=== PATIENT | female | born 1970 | race Two or more races ===

== ENCOUNTER 2016-09-04 22:35 | Emergency (ER) | payer MEDICAID ==
[~2016-09-04] VITALS: Ht 160 cm; Wt 78.0 kg
[~2016-09-04 22:35] MED LIST: ADVAIR 100-501 EACH INH; ALBUTEROL SULF8.5 GM INH; HYDROCHLOROTHIA25 MG ORAL; IBUPROFEN600 MG ORAL; PREDNISONE20 MG ORAL; PREDNISONE50 MG ORAL; PROAIR HFA8.5 GM INH; PROVENTIL HFA6.7 G1 IH; ROBITUSSIN DM5 ML PO; ZITHROMAX250 MG ORAL; ZOFRAN ODT4 MG ORAL
--- NOTE | 2016-09-04 23:07 | Emergency Room Report ---
History of Present Illness General Chief Complaint: Upper Respiratory Illness Source: Patient Present Illness HPI This is a 46-year-old female with history of asthma. She has frequent exacerbation. She presents with wheezing and shortness of breath started today. Her inhaler not helping. She try one Qvar also not helping. She has a cold for the last 2 days. Does any chest pain. Has tightness. Has wheezing. Similar symptom in the past. No fever or chills. Allergies: Coded Allergies: No Known Allergies (Unverified , 06/09/13) Patient History Past Medical History: see triage record, old chart reviewed, asthma Past Surgical History: other Pertinent Family History: none Social History: Denies: smoking Now: No Immunizations: other Reviewed Nursing Documentation: PMH: Agreed, PSxH: Agreed Nursing Documentation-PMH Hx Hypertension: Yes Hx Asthma: Yes Review of Systems Eye: Denies: blurred vision, eye pain ENT: Denies: ear pain, nose congestion, throat swelling Respiratory: Reports: cough, shortness of breath, wheezing Cardiovascular: Denies: chest pain, palpitations Gastrointestinal: Denies: abdominal pain, diarrhea, nausea, vomiting Musculoskeletal: Denies: back pain, joint pain Skin: Denies: rash Neurological: Denies: headache, numbness Endocrine: Denies: increased thirst, increased urine Hematologic/Lymphatic: Denies: easy bruising All Other Systems: negative except mentioned in HPI Physical Exam Vital Signs Date Time Temp Pulse Resp B/P Pulse Ox O2 Delivery O2 Flow Rate FiO2 09/04/16 22:40 98.4 77 18 149/83 99 Room Air vitals showed hypertension Sp02 EP Interpretation: reviewed, normal General Appearance: well appearing, alert, mild distress Head: normocephalic, atraumatic Eyes: bilateral eye EOMI, bilateral eye PERRL ENT: hearing grossly normal, normal pharynx Neck: full range of motion, supple, no meningismus Respiratory: chest non-tender, decreased breath sounds, accessory muscle use, wheezing Cardiovascular #1: regular rate, rhythm, no murmur Gastrointestinal: normal bowel sounds, non tender, no mass, no organomegaly, no bruit, non-distended Musculoskeletal: back normal, gait/station normal, normal range of motion Psychiatric: mood/affect normal Skin: warm/dry Medical Decision Making Diagnostic Impression: Primary Impression: Upper respiratory infection Qualified Codes: J06.9 - Acute upper respiratory infection, unspecified; B97.89 - Other viral agents as the cause of diseases classified elsewhere Additional Impression: ACUTE ASTHMA EXACERBATION ER Course Patient presents with asthma exacerbation secondary to viral illness. After several treatments, she felt better now. No longer wheezing. We'll discharge home. No evidence of pneumonia, CHF, PE, ACS, dissection to name a few. Last Vital Signs Date Time Temp Pulse Resp B/P Pulse Ox O2 Delivery O2 Flow Rate FiO2 09/04/16 22:40 98.4 77 18 149/83 99 Room Air Status: improved Disposition: HOME, SELF-CARE Condition: Stable Scripts Prednisone* (PREDNISONE*) 20 Mg Tablet 60 MG ORAL DAILY, #12 TAB Prov: TATIANA BLAIR M.D. 09/05/16 Albuterol Sulfate* (ALBUTEROL SULFATE MDI*) 8.5 Gm Hfa.aer.ad 2 PUFF INH Q4H Y for cough/wheezing, #1 EA 0 Refills Prov: TATIANA BLAIR M.D. 09/05/16 Additional Instructions: Followup your DrGiuliano in 2-3 days and not better. Return if symptom worsen. TATIANA BLAIR M.D. Sep 04, 2016 23:07
[2016-09-04] MEDS ORDERED: PredniSONE 20mg tab ORAL ONE (23:15)
[2016-09-04] MEDS ORDERED: Ipratropium 0.02% Inh Soln 2.5ml UD HHN ONE (23:15)
[2016-09-04] MEDS ORDERED: Albuterol ud Inhalation HHN ONE (23:15)
[2016-09-04 23:30] VITALS: BP 143/87
[2016-09-05] MEDS ORDERED: Albuterol ud Inhalation HHN ONE (00:30)
[2016-09-05 01:30] VITALS: BP 151/87
[2016-09-05] MEDS ORDERED: PREDNISONE20 MG ORAL (01:49)
[2016-09-05] MEDS ORDERED: ALBUTEROL SULF8.5 GM INH (01:49)
[2016-09-05 01:54] VITALS: BP 151/87
== END 2016-09-05 01:54 | disposition home or self-care (01) ==
LOC: EMR 23:05
DX: J45.901 Unspecified asthma with (acute) exacerbation (principal); J06.9 Acute upper respiratory infection, unspecified; B97.89 Other viral agents as the cause of diseases classified elsewhere; I10 Essential (primary) hypertension
CPT/HCPCS: 94640; 94664; 99284

== ENCOUNTER 2017-04-29 07:49 | Emergency (ER) | payer SELFPAY ==
[~2017-04-29] VITALS: Ht 160 cm; Wt 70.3 kg
[2017-04-29 07:56] VITALS: BP 155/76
[2017-04-29] MEDS ORDERED: IBUPROFEN600 MG ORAL (08:12)
--- NOTE | 2017-04-29 08:15 | Emergency Room Report ---
History of Present Illness General Chief Complaint: Lower Extremity Injury Source: Patient Present Illness HPI Patient present with complaints of left calf pain Pain started last week on Patient was running to catch a bus when she felt a pain And as it has persisted she was concerning came to the ER Denies any swelling she felt that she has some discomfort to the ankle as well yesterday she felt some discomfort to the right ankle Denies any fall or other trauma denies any fevers or chills denies any chest pain shortness of breath denies any recent travel Allergies: Coded Allergies: No Known Allergies (Unverified , 06/09/13) Patient History Past Medical History: see triage record Pertinent Family History: none Last Menstrual Period: now Now: No Reviewed Nursing Documentation: PMH: Agreed, PSxH: Agreed Nursing Documentation-PMH Past Medical History: No History, Except For Hx Hypertension: Yes Hx Asthma: Yes Review of Systems All Other Systems: negative except mentioned in HPI Physical Exam Vital Signs Date Time Temp Pulse Resp B/P (MAP) Pulse Ox O2 Delivery O2 Flow Rate FiO2 04/29/17 07:56 99.0 65 18 155/76 98 Room Air Sp02 EP Interpretation: reviewed, normal General Appearance: well appearing, no apparent distress Head: normocephalic, atraumatic Eyes: bilateral eye PERRL, bilateral eye EOMI ENT: normal pharynx Neck: full range of motion, supple Cardiovascular #1: regular rate, rhythm Musculoskeletal: other - Discomfort with extending the foot, and extension stretching of the calf, no obvious swelling, no obvious hematomas or bruising, the cath itself feels soft Neurologic: alert, oriented x3, responsive, gallery assistant III-XII nml as tested Skin: normal color, no rash Lymphatic: no adenopathy Medical Decision Making Diagnostic Impression: Primary Impression: muscle strain ER Course Multiple differentials including but not limited to, partial muscle tear, blood clots, compartment syndrome considered Patient however has findings in line with a likely muscle strain With the lack of any hematomas or bruising less likely muscle tear No clinical symptoms are as fractures for blood clot and the patient is stable for close outpatient follow Last Vital Signs Date Time Temp Pulse Resp B/P (MAP) Pulse Ox O2 Delivery O2 Flow Rate FiO2 04/29/17 07:56 99.0 65 18 155/76 98 Room Air Status: unchanged Disposition: HOME, SELF-CARE Condition: Stable Scripts Ibuprofen* (MOTRIN*) 600 Mg Tablet 600 MG ORAL Q8H Y for For Pain, #20 TAB 0 Refills Prov: DORA LEON D.O. 04/29/17 Referrals: NON PHYSICIAN (PCP) Patient Instructions: Muscle Strain, [id number] Additional Instructions: Patient is provided with the discharge instructions notified to follow up with primary doctor in the next 2-3 days otherwise return to the er with any worsening symptoms. Please note that this report is being documented using [employer] technology. This can lead to erroneous entry secondary to incorrect interpretation by the dictating instrument. DORA LEON D.O. Apr 29, 2017 08:15
[2017-04-29 08:29] VITALS: BP 155/76
== END 2017-04-29 08:29 | disposition home or self-care (01) ==
LOC: EMR 08:10
DX: S86.112A Strain of other muscle(s) and tendon(s) of posterior muscle group at lower leg level, left leg, initial encounter (principal); X58.XXXA Exposure to other specified factors, initial encounter; Y92.89 Other specified places as the place of occurrence of the external cause; I10 Essential (primary) hypertension; J45.909 Unspecified asthma, uncomplicated
CPT/HCPCS: 99283

== ENCOUNTER 2017-11-18 21:23 | Emergency (ER) | payer SELFPAY ==
[~2017-11-18] VITALS: Ht 153 cm; Wt 77.6 kg
[2017-11-18] MEDS ORDERED: BENADRYL A12.5 MG/5 ORAL (21:33)
[2017-11-18] MEDS ORDERED: SINGULAIR10 MG ORAL (21:33)
[2017-11-18] MEDS ORDERED: LORazepam Inj 2mg/ml 1ml IV ONE (21:45)
--- NOTE | 2017-11-18 21:48 | Emergency Room Report ---
History of Present Illness General Chief Complaint: Dizziness Source: Patient Present Illness HPI Is a 47-year-old female with no significant past medical history. Presents with chief complaint of dizziness. Onset yesterday. Worse when she is laying down turning her to certain way. Said the room is spinning. Intermittently. Has nausea but no vomiting. No recent illnesses. No diarrhea. No chest pain. No cough or congestion. Allergies: Coded Allergies: No Known Allergies (Unverified , 06/09/13) Patient History Past Medical History: see triage record, old chart reviewed, HTN Past Surgical History: other Pertinent Family History: none Social History: Denies: smoking Now: No Immunizations: other Reviewed Nursing Documentation: PMH: Agreed; PSxH: Agreed Nursing Documentation-PMH Past Medical History: No History, Except For Hx Hypertension: Yes Hx Asthma: Yes Review of Systems Eye: Denies: eye pain, blurred vision ENT: Denies: ear pain, nose congestion, throat swelling Respiratory: Denies: cough, shortness of breath Cardiovascular: Denies: chest pain, palpitations Gastrointestinal: Denies: abdominal pain, diarrhea, nausea, vomiting Musculoskeletal: Denies: back pain, joint pain Skin: Denies: rash Neurological: Reports: dizziness; Denies: headache, numbness Endocrine: Denies: increased thirst, increased urine Hematologic/Lymphatic: Denies: easy bruising All Other Systems: negative except mentioned in HPI Physical Exam Vital Signs Date Time Temp Pulse Resp B/P (MAP) Pulse Ox O2 Delivery O2 Flow Rate FiO2 18 21:27 98.3 62 18 156/87 96 Room Air 98.2 vitals with high blood pressure Sp02 EP Interpretation: reviewed, normal General Appearance: well appearing, no apparent distress, alert Head: normocephalic, atraumatic Eyes: left eye other - Reproducible symptom when her head is turned to the left.; bilateral eye PERRL, bilateral eye EOMI ENT: hearing grossly normal, normal pharynx Neck: full range of motion, supple, no meningismus Respiratory: chest non-tender, lungs clear, normal breath sounds Cardiovascular #1: regular rate, rhythm, no murmur Gastrointestinal: normal bowel sounds, non tender, no mass, no organomegaly, no bruit, non-distended Musculoskeletal: back normal, gait/station normal, normal range of motion Psychiatric: mood/affect normal Skin: warm/dry Medical Decision Making Diagnostic Impression: Primary Impression: Vertigo ER Course Patient presents with symptoms of vertigo. No evidence of VBI, TIA, CVA or neoplastic process. CT scan negative. Labs unremarkable. Patient felt better now. We'll discharge home. Lab Results Impression labs normal CT/MRI/US Diagnostic Results CT/MRI/US Diagnostic Results : Imaging Test Ordered: CT head Impression negative per radiologist Last Vital Signs Date Time Temp Pulse Resp B/P (MAP) Pulse Ox O2 Delivery O2 Flow Rate FiO2 11/18/17 21:27 98.3 62 18 156/87 96 Room Air 98.2 Status: improved Disposition: HOME, SELF-CARE Condition: Stable Scripts Meclizine Hcl* (MECLIZINE*) 25 Mg Tablet 25 MG ORAL THREE TIMES A DAY, #20 TAB Prov: TATIANA BLAIR M.D. 11/18/17 Patient Instructions: Vertigo Additional Instructions: Follow-up with your doctor in 7 days. Return if symptom worsen. TATIANA BLAIR M.D. November 18, 2017 21:48
[2017-11-18 22:00] VITALS: BP 145/78
[2017-11-18 22:08] LABS: APPEARANCE,URINE CLEAR; BILIRUBIN, URINE NEGATIVE (NEGATIVE); COLOR,URINE PALE YELLOW; GLUCOSE, URINE (UA) NEGATIVE (NEGATIVE); KETONES,URINE NEGATIVE (NEGATIVE); LEUKOCYTE ESTERASE ,URINE NEGATIVE (NEGATIVE); NITRITE,URINE NEGATIVE (NEGATIVE); PH,URINE 6 (4.5-8.0); PROTEIN,URINE NEGATIVE (NEGATIVE); UROBILINOGEN,URINE NORMAL MG/DL (0.0-1.0)
[2017-11-18 22:08] LABS: BASOPHILS % (AUTO) 1.2 % (0.0-2.0); HEMATOCRIT 42.9 % (37.0-47.0); HEMOGLOBIN 14.5 G/DL (12.0-16.0); LYMPHOCYTES % (AUTO) 26.1 % (20.0-45.0); MEAN CORPUSCULAR VOLUME 87 FL (80-99); MONOCYTES % (AUTO) 9.4 % (1.0-10.0); NEUTROPHILS % (AUTO) 56.3 % (45.0-75.0); PLATELET COUNT 307 K/UL (150-450); RED BLOOD COUNT 4.94 M/UL (4.20-5.40); RED CELL DISTRIBUTION WIDTH 11.9 % (11.6-14.8); WHITE BLOOD COUNT 7.1 K/UL (4.8-10.8)
[2017-11-18 22:17] LABS: ANION GAP 9 mmol/L (5-15); BLOOD UREA NITROGEN 19 mg/dL (7-18); CALCIUM 9.1 MG/DL (8.5-10.1); CARBON DIOXIDE 25 MMOL/L (21-32); CHLORIDE 103 MMOL/L (98-107); CREATININE 0.8 MG/DL (0.55-1.30); POTASSIUM 3.6 MMOL/L (3.5-5.1); SODIUM 137 MMOL/L (136-145)
[2017-11-18] MEDS ORDERED: MECLIZINE HCL25 MG ORAL (22:42)
[2017-11-18 23:10] VITALS: BP 140/68
[2017-11-18 23:12] VITALS: BP 140/68
--- NOTE | 2017-11-19 08:30 | Diagnostic Imaging Report ---
Indication: Dizziness Technique: Contiguous 5 mm thick transaxial imaging of the head obtained in a Siemens Sensation [address] scanner. Soft tissue and bone windows generated. Automatic Exposure Control was utilized. Total Dose length Product (DLP): 1418.[address] Dose Index Volume (CTDIvol): 70.38 mGy Comparison: none Findings: The size and configuration of the cortical sulci, basal cisterns, and ventricles are within normal limits for age. There is no mass effect, midline shift, or edema identified. There is no evidence of acute hemorrhage or abnormal intra-axial or extra-axial fluid collections. The bones and soft tissues are unremarkable. Impression: No mass effect, edema or acute bleed. [facility] has communicated the preliminary results to the Emergency Department. Their findings are largely concordant with this report. The CT scanner at [facility] is accredited by the [employer] and the scans are performed using dose optimization techniques as appropriate to a performed exam including Automatic Exposure control.
== END 2017-11-18 23:10 | disposition home or self-care (01) ==
LOC: EMR 21:45
DX: R42 Dizziness and giddiness (principal); J45.909 Unspecified asthma, uncomplicated; I10 Essential (primary) hypertension
CPT/HCPCS: 36415; 70450; 80048; 81001; 85025; 96374; 99284

== ENCOUNTER 2018-08-26 10:13 | Emergency (ER) | payer MEDICAID ==
[~2018-08-26] VITALS: Ht 142.2 cm; Wt 80.7 kg
[~2018-08-26 10:13] MED LIST changes: +BENADRYL A12.5 MG/5 ORAL; +MECLIZINE HCL25 MG ORAL; +SINGULAIR10 MG ORAL
[2018-08-26 10:28] VITALS: BP 144/84
--- NOTE | 2018-08-26 10:38 | NUR ---
ED Nurse Note: A/OX4. AMBULATED IN TO ER FROM HOME DUE TO FLU-LIKE SYMPTOMS- SORE THROAT AND NASAL CONGESTION AND COUGHING X 1 WEEK. PER PT, SYMPTOMS GOT WORSE LAST NIGHT. TOOK ADVILL BUT DID NOT HELP MUCH.
[2018-08-26] MEDS ORDERED: Albuterol/Ipratropium 3ml neb HHN ONE (10:45)
--- NOTE | 2018-08-26 10:46 | NUR ---
ED Nurse Note: NOTIFIED RT REGARDING BREATHING TREATMENT ORDER
[2018-08-26] MEDS ORDERED: TAMIFLU75 MG ORAL (11:18)
[2018-08-26 13:32] VITALS: BP 138/79
--- NOTE | 2018-08-26 13:32 | NUR ---
ED Nurse Note: A/Ox4. Pt is cleared by AMBER Contreras. DC instruction and prescriptions given, pt verbalized understanding. IV/ID wristband removed. All belongings taken by pt. Denies pain at this time. Pt ambulated out of ER with steady gait.
--- NOTE | 2018-08-26 21:58 | Emergency Room Report ---
History of Present Illness General Chief Complaint: Flu Like Symptoms Source: Patient Present Illness HPI Patient is a 48-year-old female presented after increased cough and congestion. Patient reports having increased nonproductive cough associated with body aches. She had not been vomiting. She reports having some sore throat. Patient denies any neck stiffness. She denies any exertional symptoms. She denies any chest pain. She reports having some generalized body aches. Allergies: Coded Allergies: No Known Allergies (Unverified , 06/09/13) Patient History Past Medical History: see triage record Last Menstrual Period: 1-24 Now: No Reviewed Nursing Documentation: PMH: Agreed; PSxH: Agreed Nursing Documentation-PMH Hx Hypertension: Yes Hx Asthma: Yes Review of Systems All Other Systems: negative except mentioned in HPI Physical Exam Vital Signs Date Time Temp Pulse Resp B/P (MAP) Pulse Ox O2 Delivery O2 Flow Rate FiO2 08/26/18 10:24 99.0 69 18 144/84 97 Room Air 08/26/18 10:51 21 Sp02 EP Interpretation: reviewed, normal General Appearance: normal inspection, well appearing, no apparent distress, alert, GCS 15 Head: atraumatic ENT: normal ENT inspection, hearing grossly normal, normal voice Neck: normal inspection, full range of motion, supple, no bony tend Respiratory: normal inspection, lungs clear, normal breath sounds, no respiratory distress, no retraction, no wheezing Cardiovascular #1: regular rate, rhythm, no edema Gastrointestinal: normal inspection, normal bowel sounds, non tender, soft, no guarding, no hernia Genitourinary: no CVA tenderness Musculoskeletal: normal inspection, back normal, normal range of motion Neurologic: normal inspection, alert, oriented x3, responsive, z os mainframe systems programmer III-XII nml as tested, speech normal Psychiatric: normal inspection, judgement/insight normal, mood/affect normal Skin: normal inspection, normal color, no rash Medical Decision Making Diagnostic Impression: Primary Impression: Influenza-like illness ER Course . Patient presented for cough and fever. Differential diagnosis includes is not limited to pneumonia, bronchitis, influenza, pulmonary embolism among others. Patient has a benign exam and does not appear to require any further imaging or laboratory testing at this time patient appears to have an influenza- like illness. Patient will be empirically treated with Tamiflu.Patient was tested for influenza and this was negative however given the prevalence of influenza at this time this is more likely a false negative. Patient was advised to recheck with her primary care physician and drink plenty of fluids. She advised to return if any worsening of condition. Labs Test 08/26/18 10:45 Urine HCG, Qualitative Negative (NEGATIVE) Last Vital Signs Date Time Temp Pulse Resp B/P (MAP) Pulse Ox O2 Delivery O2 Flow Rate FiO2 08/26/18 13:32 98.8 70 16 138/79 98 Room Air 08/26/18 11:07 21 Status: improved Disposition: HOME, SELF-CARE Condition: Stable Scripts Oseltamivir Phosphate (Tamiflu) 75 Mg Capsule 75 MG ORAL TWICE A DAY, #10 CAP Prov: Bhavin Lyles MD 08/26/18 Patient Instructions: Viral Respiratory Infection Bhavin Lyles MD Aug 26, 2018 21:58
== END 2018-08-26 13:31 | disposition home or self-care (01) ==
LOC: EMR 10:43
DX: J11.1 Influenza due to unidentified influenza virus with other respiratory manifestations (principal); I10 Essential (primary) hypertension; J45.901 Unspecified asthma with (acute) exacerbation
CPT/HCPCS: 81025; 86710; 94640; 99284; J7620

== ENCOUNTER 2018-10-31 22:39 | Emergency (ER) | payer MEDICAID ==
[~2018-10-31] VITALS: Ht 152.4 cm; Wt 80.7 kg
[~2018-10-31 22:39] MED LIST changes: +TAMIFLU75 MG ORAL
[2018-10-31 23:00] VITALS: BP 156/82
--- NOTE | 2018-10-31 23:00 | NUR ---
ED Nurse Note: Patient walked into ED c/o lower back pain accompanied by cough for 1 day. patient rates her pain a 9/10 scale. patient is alert and oriented x4, ambulatory with a steady gait, VSS
[2018-10-31] MEDS: HYDROcodone/Acetamin 5/325 tab ORAL ONE (23:05)
[2018-11-01] MEDS ORDERED: PROMETHAZINE-C118 M1 ORAL (00:03)
[2018-11-01] MEDS ORDERED: IBUPROFEN600 MG ORAL (00:03)
--- NOTE | 2018-11-01 00:03 | Emergency Room Report ---
History of Present Illness General Chief Complaint: Upper Respiratory Illness Source: Patient Present Illness HPI Is a 48-year-old female with history of asthma. She presents with chief complaint of cough and back pain. She been coughing for last couple days. Nonproductive nature. Better with her inhaler. Now her back is hurting. Worse with movement. Worse with inspiration. Pain is sharp and localized to the right upper back. 7 out of 10. No radiation. no Calf tenderness. Allergies: Coded Allergies: No Known Allergies (Unverified , 06/09/13) Patient History Past Medical History: see triage record, old chart reviewed, asthma Past Surgical History: other Pertinent Family History: none Social History: Denies: smoking Last Menstrual Period: 10/16/18 Now: No Immunizations: other Reviewed Nursing Documentation: PMH: Agreed; PSxH: Agreed Nursing Documentation-PMH Past Medical History: No History, Except For Hx Hypertension: Yes Hx Asthma: Yes Review of Systems Eye: Denies: eye pain, blurred vision ENT: Denies: ear pain, nose congestion, throat swelling Respiratory: Denies: cough, shortness of breath Cardiovascular: Denies: chest pain, palpitations Gastrointestinal: Denies: abdominal pain, diarrhea, nausea, vomiting Musculoskeletal: Reports: back pain; Denies: joint pain Skin: Denies: rash Neurological: Denies: headache, numbness Endocrine: Denies: increased thirst, increased urine Hematologic/Lymphatic: Denies: easy bruising All Other Systems: negative except mentioned in HPI Physical Exam Vital Signs Date Time Temp Pulse Resp B/P (MAP) Pulse Ox O2 Delivery O2 Flow Rate FiO2 10/31/18 22:49 99.1 71 14 156/82 9 Room Air Sp02 EP Interpretation: reviewed, normal General Appearance: well appearing, no apparent distress, alert Head: normocephalic, atraumatic Eyes: bilateral eye PERRL, bilateral eye EOMI ENT: hearing grossly normal, normal pharynx Neck: full range of motion, supple, no meningismus Respiratory: lungs clear, normal breath sounds Cardiovascular #1: regular rate, rhythm, no murmur Gastrointestinal: normal bowel sounds, non tender, no mass, no organomegaly, no bruit, non-distended Musculoskeletal: back normal, gait/station normal, normal range of motion, other - Tenderness to palpation of the right thoracic area Psychiatric: mood/affect normal Skin: warm/dry Medical Decision Making Diagnostic Impression: Primary Impression: Strain of thoracic back region Additional Impression: Asthma Qualified Codes: J45.20 - Mild intermittent asthma, uncomplicated ER Course She presents with a strain of her back muscles secondary to coughing. No pneumonia, PE, dissection, ACS to name a few. We'll discharge home. Chest X-Ray Diagnostic Results Chest X-Ray Diagnostic Results : Chest X-Ray Ordered: Yes # of Views/Limited/Complete: 1 View Indication: Chest Pain EP Interpretation: Yes Interpretation: no consolidation, no effusion, no pneumothorax, no acute cardiopulmonary disease Impression: No acute disease Electronically Signed by: Mello Ring MD Last Vital Signs Date Time Temp Pulse Resp B/P (MAP) Pulse Ox O2 Delivery O2 Flow Rate FiO2 10/31/18 23:00 71 14 Room Air 10/31/18 23:00 99.1 156/82 99 Status: improved Disposition: HOME, SELF-CARE Condition: Stable Scripts Codeine/Promethazine Hcl* (PROMETHAZINE-CODEINE SYRUP*) 118 Ml Syrup 5 ML ORAL Q6H PRN for For Cough, #118 ML 0 Refills Prov: Mello Ring MD 11/01/18 Ibuprofen* (MOTRIN*) 600 Mg Tablet 600 MG ORAL THREE TIMES A DAY, #30 TAB 0 Refills Prov: Mello Ring MD 11/01/18 Additional Instructions: Follow-up with your doctor in 7 days. Return if symptom worsen. Mello Ring MD Nov 01, 2018 00:03
[2018-11-01 00:05] VITALS: BP 152/76
--- NOTE | 2018-11-01 00:05 | NUR ---
ER DISCHARGE NOTE: Patient is cleared to be discharged per ERMD, pt is aox4, on room air, with stable vital signs. pt was given dc and prescription instructions, pt was able to verbalize understanding, pt id band removed without complications. pt is able to ambulate with steady gait. pt took all belongings.
--- NOTE | 2018-11-01 13:16 | Diagnostic Imaging Report ---
. Indication: Shortness of breath Technique: 10/11/2014 Comparison: None Findings: Heart size and mediastinal contours are within normal limits for AP technique and stable compared to the prior exam. Atherosclerotic calcifications again noted in the aorta. There is no focal consolidation, pneumothorax or pleural effusion. Osseous structures demonstrate no acute abnormality. Surgical clips again noted in the right axilla. Impression: No radiographic evidence of acute cardiopulmonary disease.
== END 2018-11-01 00:05 | disposition home or self-care (01) ==
LOC: EMR 23:04
DX: S29.012A Strain of muscle and tendon of back wall of thorax, initial encounter (principal); X58.XXXA Exposure to other specified factors, initial encounter; Y92.9 Unspecified place or not applicable; I10 Essential (primary) hypertension; J45.909 Unspecified asthma, uncomplicated
CPT/HCPCS: 71045; 99283

== ENCOUNTER 2018-12-05 17:41 | Emergency (ER) | payer SELFPAY ==
[~2018-12-05] VITALS: Ht 157.5 cm; Wt 79.8 kg
[~2018-12-05 17:41] MED LIST changes: +PROMETHAZINE-C118 M1 ORAL
[2018-12-05 17:47] VITALS: BP 195/93
[2018-12-05 18:48] VITALS: BP 150/85
--- NOTE | 2018-12-05 18:59 | Emergency Room Report ---
History of Present Illness General Chief Complaint: Headache Source: Patient Present Illness HPI 48-year-old female with history of hypertension currently uncontrolled as she forgets to take her blood pressure medication here complaining of headache and forehead and bilateral maxilla as well as pressure in both ears x1 day. Patient also complains of minimal vertigo however denies syncope, and is able to walk without falling. Denies nausea, vomiting, abdominal pain, rhinorrhea, sore throat, and cough. She also has history of asthma and is currently using her inhaler as needed. Denies chest pain, S OB, palpitation. She reports that she often forgets to take her blood pressure medication as she is working a lot. Denies blurred vision. She is rating her headache 5 out of 10 without radiation and has taken ibuprofen for pain with minimal relief. Denies tingling and numbness Allergies: Coded Allergies: No Known Allergies (Unverified , 06/09/13) Patient History Past Medical History: see triage record Past Surgical History: unable to obtain Pertinent Family History: none Last Menstrual Period: 11/09/18 Now: No : 2 Para: 2 Immunizations: UTD Reviewed Nursing Documentation: PMH: Agreed; PSxH: Agreed Nursing Documentation-PMH Past Medical History: No History, Except For Hx Hypertension: Yes Hx Asthma: Yes Review of Systems All Other Systems: negative except mentioned in HPI Physical Exam Vital Signs Date Time Temp Pulse Resp B/P (MAP) Pulse Ox O2 Delivery O2 Flow Rate FiO2 12/05/18 17:47 98.4 70 20 195/93 (127) 96 Room Air Sp02 EP Interpretation: reviewed, normal General Appearance: normal inspection, well appearing, no apparent distress, alert Head: normocephalic, atraumatic Eyes: bilateral eye normal inspection, bilateral eye PERRL, bilateral eye photophobia, bilateral eye other - No nystagmus noted ENT: hearing grossly normal, normal pharynx, no angioedema, TMs + canals normal , other - Minor tenderness on bilateral maxillary sinuses Neck: normal inspection, full range of motion, supple Respiratory: normal inspection, chest non-tender, lungs clear, no wheezing Cardiovascular #1: normal inspection, normal peripheral pulses, regular rate, rhythm, no murmur Gastrointestinal: normal inspection, soft Rectal: deferred Genitourinary: no CVA tenderness Musculoskeletal: normal inspection, back normal, digits/nails normal Neurologic: normal inspection, alert, oriented x3, responsive, building coordinator III-XII nml as tested, motor strength/tone normal, sensory intact Psychiatric: normal inspection, judgement/insight normal, memory normal, mood/ affect normal Skin: normal inspection, normal color, no rash, warm/dry Lymphatic: normal inspection, no adenopathy Medical Decision Making PA Attestation All my diagnosis and treatment plans were reviewed ad discussed with my supervising physician Dr. Agee Diagnostic Impression: Primary Impression: Allergic rhinitis Additional Impressions: Vertigo Essential (primary) hypertension ER Course 48-year-old female with history of hypertension currently uncontrolled as she forgets to take her blood pressure medication here complaining of headache and forehead and bilateral maxilla as well as pressure in both ears x1 day. Patient also complains of minimal vertigo however denies syncope, and is able to walk without falling. Denies nausea, vomiting, abdominal pain, rhinorrhea, sore throat, and cough. She also has history of asthma and is currently using her inhaler as needed. Denies chest pain, S OB, palpitation. She reports that she often forgets to take her blood pressure medication as she is working a lot. Denies blurred vision. She is rating her headache 5 out of 10 without radiation and has taken ibuprofen for pain with minimal relief. Denies tingling and numbness Ddx considered but are not limited to: sinusitis, HTN urgency, allergic rhintitis, vertigo Vital signs: are WNL, pt. is afebrile H&PE are most consistent with: allergic rhintitis, vertigo , HTN ORDERS: meclizine, claritin ED INTERVENTIONS: HCTZ 25mg DISCHARGE: At this time pt. is stable for d/c to home. Will provide printed patient care instructions, and any necessary prescriptions. Care plan and follow up instructions have been discussed with the patient prior to discharge. Patient to follow-up with a primary care provider for better management of blood pressure I administer 25 mg of hydrochlorothiazide in the emergency room today as patient had not taken her blood pressure medication with the same dosage for a few days. The blood pressure was down to 150/80 after 30 minutes of administration of the medication. Patient also reported that her headache improved however still felt pressure in both ears as well as minimal vertigo patient to follow-up with a primary care provider for referral to ear nose throat doctor and take medication as directed Last Vital Signs Date Time Temp Pulse Resp B/P (MAP) Pulse Ox O2 Delivery O2 Flow Rate FiO2 12/05/18 18:48 98.4 61 17 150/85 98 Room Air Disposition: HOME, SELF-CARE Condition: Stable Scripts Meclizine Hcl* (MECLIZINE*) 25 Mg Tablet 25 MG ORAL BID, #10 TAB Prov: Anabel Newman 12/05/18 Loratadine (CLARITIN) 5 Mg Tab.rapdis 5 MG ORAL DAILY, #10 TAB Prov: Anabel Newman 12/05/18 Referrals: NON PHYSICIAN (PCP) Patient Instructions: Managing Your High Blood Pressure, Vertigo, [id number] Additional Instructions: Take your blood pressure medication as is been prescribed, follow with the primary care provider if pressure in your ears and your sinuses continue. Anabel Newman December 05, 2018 18:59
[2018-12-05] MEDS ORDERED: CLARITIN5 MG ORAL (19:00)
[2018-12-05] MEDS ORDERED: MECLIZINE HCL25 MG ORAL (19:00)
[2018-12-05 19:11] VITALS: BP 150/85
[2018-12-05] MEDS ORDERED: IBUPROFEN600 MG ORAL (23:56)
== END 2018-12-05 19:11 | disposition home or self-care (01) ==
LOC: EMR 18:09
DX: J30.9 Allergic rhinitis, unspecified (principal); R42 Dizziness and giddiness; I10 Essential (primary) hypertension; J45.909 Unspecified asthma, uncomplicated
CPT/HCPCS: 99282

== ENCOUNTER 2019-02-07 21:13 | Emergency (ER) | payer SELFPAY ==
[~2019-02-07] VITALS: Ht 152.4 cm; Wt 78.0 kg
[~2019-02-07 21:13] MED LIST changes: +CLARITIN5 MG ORAL
[2019-02-07 21:30] VITALS: BP 160/84
--- NOTE | 2019-02-07 21:30 | NUR ---
ER Nurse Note: Pt came from home c/o LT arm pain since 02/06. Pt stated acute onset, denies trauma, pressure to LT arm, no heavy lifting. Skin intact, cap refill less than 3 secs. Pt able to move fingers with no difficulty; pt able to move arm with slow movements and discomfort.
--- NOTE | 2019-02-07 21:44 | Emergency Room Report ---
History of Present Illness General Chief Complaint: Pain Source: Patient Present Illness HPI Is a 48-year-old female with a history of high blood pressure. She presents with 2 complaints. Her first complaint is left arm pain. Pain is to the bicep area. Rating down her arm. No trauma. Woke up with it. Pain is throbbing in nature. Nothing made it better. Nothing made it worse. Pain is 8 out of 10. No fever chills. Second complaint is left ear with decreased hearing and ringing sensation. This problem been for a few months. No fever chills but no nausea no vomiting. Has not seen a specialist. She works in a [employer]. Allergies: Coded Allergies: No Known Allergies (Unverified , 12/05/18) Patient History Past Medical History: see triage record, old chart reviewed, HTN Past Surgical History: none Pertinent Family History: none Social History: Denies: smoking Last Menstrual Period: November 07, 2018 Now: No Immunizations: other Reviewed Nursing Documentation: PMH: Agreed; PSxH: Agreed Nursing Documentation-PMH Past Medical History: No History, Except For Hx Hypertension: Yes Hx Asthma: Yes Review of Systems Eye: Denies: eye pain, blurred vision ENT: Denies: ear pain, nose congestion, throat swelling Respiratory: Denies: cough, shortness of breath Cardiovascular: Denies: chest pain, palpitations Gastrointestinal: Denies: abdominal pain, diarrhea, nausea, vomiting Musculoskeletal: Reports: muscle pain; Denies: back pain, joint pain Skin: Denies: rash Neurological: Denies: headache, numbness Endocrine: Denies: increased thirst, increased urine Hematologic/Lymphatic: Denies: easy bruising All Other Systems: negative except mentioned in HPI Physical Exam Vital Signs Date Time Temp Pulse Resp B/P (MAP) Pulse Ox O2 Delivery O2 Flow Rate FiO2 02/07/19 21:19 98.8 70 18 160/84 (109) 97 Room Air Normal except for high blood pressure Sp02 EP Interpretation: reviewed, normal General Appearance: well appearing, no apparent distress, alert Head: normocephalic, atraumatic Eyes: bilateral eye PERRL, bilateral eye EOMI ENT: hearing grossly normal, normal pharynx Neck: full range of motion, supple, no meningismus Respiratory: chest non-tender, lungs clear, normal breath sounds Cardiovascular #1: regular rate, rhythm, no murmur Gastrointestinal: normal bowel sounds, non tender, no mass, no organomegaly, no bruit, non-distended Musculoskeletal: back normal, gait/station normal, normal range of motion, other - LEft upper arm with tenderness to the bicep tricep area. No swelling. Range of motion at the shoulder, elbow and wrist. Sensation normal. Psychiatric: mood/affect normal Medical Decision Making Diagnostic Impression: Primary Impression: Left upper arm pain ER Course Patient presents with left arm pain no evidence of any fracture dislocation. No trauma. No evidence of DVT. Will discharge home. CT/MRI/US Diagnostic Results CT/MRI/US Diagnostic Results : Imaging Test Ordered: Left upper extremity ultrasound Impression Negative Per costume rental clerk. Last Vital Signs Date Time Temp Pulse Resp B/P (MAP) Pulse Ox O2 Delivery O2 Flow Rate FiO2 02/07/19 21:19 98.8 70 18 160/84 (109) 97 Room Air Status: improved Disposition: HOME, SELF-CARE Condition: Stable Scripts Ibuprofen* (MOTRIN*) 600 Mg Tablet 600 MG ORAL THREE TIMES A DAY, #30 TAB 0 Refills Prov: Mello Ring MD 02/07/19 Referrals: NOT CHOSEN IPA/,REFERRING (PCP) Additional Instructions: Follow-up with your doctor in 7 days. Return if symptoms worsen. Mello Ring MD Feb 07, 2019 21:44
--- NOTE | 2019-02-07 22:17 | NUR ---
ER Nurse Note: Explained to pt that US ordered; pt aware and calm. Provided pt with blanket. All safety measures met; will continue to montior.
--- NOTE | 2019-02-07 22:31 | NUR ---
ER Nurse Note: US tech at pt side; tolerating well. Will continue to montior.
[2019-02-07] MEDS ORDERED: IBUPROFEN600 MG ORAL (23:22)
[2019-02-07 23:28] VITALS: BP 156/80
--- NOTE | 2019-02-07 23:28 | NUR ---
ER Nurse Note: Pt seen, treated, medically cleared for discharge by ERMD. Discharge instuctions and prescriptions given with repeat verbalization by pt. Emphasized to follow up with primay care provider; take whole course of medication. Explained each medication. All orders completed per ERMD orders. Pt a&ox4, VSS, no signs of distress. ID band removed. explained results of US; pt udnerstood teaching. All questions answered per pt's questions. Pt left with all belongings, left with own transportation.
--- NOTE | 2019-02-07 23:44 | Diagnostic Imaging Report ---
EXAM: US Duplex Left Upper Extremity Veins CLINICAL HISTORY: PAIN TECHNIQUE: Real-time duplex ultrasound scan of the left upper extremity veins integrating B-mode two-dimensional vascular structure, Doppler spectral analysis, color flow Doppler imaging and compression. COMPARISON: No relevant prior studies available. FINDINGS: Deep veins: Unremarkable. No DVT in the internal jugular, subclavian, axillary, or brachial veins. The veins demonstrate normal color flow, are normally compressible, with normal phasic flow and/or augmentation response. Superficial veins: Unremarkable. No thrombus in the visualized basilic and cephalic veins. Soft tissues: No acute findings. IMPRESSION: No evidence for DVT in the visualized portions of the veins of the left upper extremity.
== END 2019-02-07 23:28 | disposition home or self-care (01) ==
LOC: EMR 21:35
DX: M79.622 Pain in left upper arm (principal); I10 Essential (primary) hypertension; J45.909 Unspecified asthma, uncomplicated
CPT/HCPCS: 93971; 99284